=== PATIENT | male | born 1995 | race Caucasian/White ===

== ENCOUNTER 2024-04-05 21:43 | Emergency (ER) | payer OTHER, SELFPAY ==
[2024-04-05 21:56] VITALS: BP 156/98; PULSE 86; RESP 15; TEMP 36.7; O2SAT 100
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
[2024-04-05 23:24] VITALS: BP 142/90; PULSE 87; RESP 15; O2SAT 100
== END 2024-04-05 23:25 | disposition home or self-care (01) ==
LOC: ANHED 23:15
PROVIDERS: Emergency Provider Emergency Medicine
DX: Z77.128 Contact with and (suspected) exposure to other hazards in the physical environment (principal)
CPT/HCPCS: 99281